=== PATIENT | female | born 1995 | race Caucasian/White ===

== ENCOUNTER → 2022-07-20 | Outpatient (CLI) | payer BC | LOC: MHCPAIN 14:21 | DX: M54.2 Cervicalgia (principal); M54.81 Occipital neuralgia; R51.9 Headache, unspecified | CPT/HCPCS: G0463 ==

== ENCOUNTER → 2023-09-06 | Outpatient (CLI) | payer BC ==
[~2023-09-06] MED LIST: Triamcinolone 40 MG/ML 1 ML VIAL ONE
== END ==
LOC: MHCPAIN 14:19
DX: M54.2 Cervicalgia (principal); M79.18 Myalgia, other site
CPT/HCPCS: G0463; J0665; J3301